=== PATIENT | male | born 1975 | race Caucasian/White ===

== ENCOUNTER 2023-09-03 13:45 | Emergency (ER) | payer OTHER, SELFPAY ==
[2023-09-03 13:49] VITALS: BP 162/113
--- NOTE | 2023-09-03 14:07 | ED.GENMED ---
History of Present Illness
General
Chief Complaint: Breathing Problem
Source: patient
Time Seen by Provider: 09/03/23 13:54
Travel History
Have you had any contact with someone who has COVID-19?: No
Do you have any symptoms of coronavirus? Fever > 100 degrees, chills, cough, shortness of breath, sore throat, loss of taste or smell, muscle aches, or headache?: Yes
Symptoms:: sob, chills
History of Present Illness
History of Present Illness:
This pt is a 48 yr old male, hx of HIV, levels undetectable, maintained on daily meds, presents with c/o 2 D hx of weakness, fatigue, body aches, cough, subj fever, chills, and sweats. He also notes mild sob, shin, and orthopnea, no pnd. He denies
anorexia/n/v/d/abd pain/neck stiffness/headache/photohpobia/new rash. He also notes gradual onset 2 d ago of post back pain upper, constant, wax and wane in intensity, worse with deep breathe. No recent trauma, immobilization, asx leg swelling, hx
of dvt. Pt is a smoker.
Past History
Past History
ED Past Medical History: Asthma, GERD, HTN and Other (Asthma, HIV, ITP)
ED Past Surgical History: Other (ln bx, ear tubes)
Patient has exhibited threatening behavior?: No
Social History
Tobacco: Smoker
Alcohol: None
Drug: None
Personal: Single
Living: with roommate
Employment: Employed
Family History
Family History: Other (Noncontributory)
Phy Exam
Physical Exam
Physical Exam:
GENERAL: Alert , in no apparent distress
EYE: pupils equal and reactive, no photophobia
NECK: Supple, no significant adenopathy.
ENT: o/p clr, mm sl dry
CARDIAC: Regular rate and rhythm, tachy .
LUNGS: equal breath sounds bilaterally, no acute respiratory distress, no wheezes/rales, occas rhonchi noted, occas cough
ABDOMEN: Soft, without focal tenderness, no r/g, no cvat
NEUROLOGICAL: Alert and oriented, no focal neuro deficits, no meningismus
SKIN: Warm and dry, skin intact.
MUSCULOSKELETAL: No edema, well perfused.
PSYCH: Normal and appropriate interaction.
Scores
Heart Failure Risk
Heart Failure Risk Score: Not Applicable
Course
Orders/Labs/Results
Orders:
Orders
09/03/23 13:52
Electrocardiogram (*1) Urgent
Reason for Study: Shortness of Breath
EKG- Treatment ONCE
09/03/23 14:06
CT Chest Pe Study Stat
Comment:
Reason For Exam: sob, hr 120, pleuritic back pain
Cardiac Monitoring- Treatment ONCE
0.9% Sodium Chloride 1000 ml [Nss] 1,000 ml IV BOLUS
Pulse Ox/cont/shift [RESP] Urgent
Quantity: 1
09/03/23 14:26
Complete Blood Count/With Diff Urgent
Comprehensive Metabolic Panel Urgent
Blood Culture Q30M
DIGNA Source: Blood/Venous
Specimen Description:
Blood Culture Q30M
DIGNA Source: Blood/Venous
Specimen Description:
Influenza A+B Rapid Molecular Stat
DIGNA Source: Nasal Swab
Specimen Description:
09/03/23 14:27
COVID-19 Antigen Urgent
Source: Nasal Swab
Lactic Acid Q4H
Comment: CANCEL 2nd LACTIC ACID IF 1st LACTIC ACID IS LESS THAN 2
09/03/23 16:29
Dexamethasone [Decadron] 40 mg PO NOW STA
09/03/23 18:15
Lactic Acid Q4H
Comment: CANCEL 2nd LACTIC ACID IF 1st LACTIC ACID IS LESS THAN 2
Abnormal Lab Results
09/03/23
14:26
MCV 77.8 L fL
(80.0-94.0)
MCH 26.1 L pg
(27.0-31.0)
Plt Count 7 L* 10^3/uL
(130-400)
Absolute Lymphs (auto) 0.8 L 10^3/uL
(1.2-3.4)
Lymphocytes % 16.6 L %
(20.5-51.1)
Monocytes % 11.6 H %
(1.7-9.3)
Sodium 129 L mmol/L
(135-145)
Chloride 96 L mmol/L
(98-107)
09/03/23 14:26
09/03/23 14:26
Vital Signs
Initial and Last Documented VS:
Initial Vital Signs
Temp Pulse Resp BP Pulse Ox
98.0 F 120 20 162/113 99
09/03/23 13:49 09/03/23 13:49 09/03/23 13:49 09/03/23 13:49 09/03/23 13:49
Last Documented Vital Signs
Temp Pulse Resp BP Pulse Ox
98.0 F 110 28 141/98 96
09/03/23 13:49 09/03/23 15:15 09/03/23 15:15 09/03/23 15:00 09/03/23 15:15
*Critical Care Note
Total Time (30-74mins, 75-104mins- exclusive of procedures): Not Applicable
Update Note
Update Note:
Patient presents to the Emergency Department with _bodyaches, subjective fever, fatigue, cough, dyspnea
Number and Complexity of Problems Addressed at the Encounter
� Chronic conditions affecting care:
� Acute Exacerbation and/or Progression of Chronic Illness:
� Differential Diagnosis includes: But not limited to COVID, influenza, nonspecific viral illness, PE, pneumonia, etc.
Amount and/or Complexity of Data to be Reviewed and Analyzed
� I performed an independent evaluation of and my interpretation is:
EKG: Read by me, sinus tachycardia, right bundle branch block, no acute ischemia
CT: Read by radiology, CT PE study negative
Xrays:
Laboratory Studies:platelet 7K
Other:
� Review of other/old records reveals: Patient in the hospital March 2021, discharge summary reviewed, admitted with an ITP flare
� Clinical information was obtained by an independent historian:
� Prescriptions/Medications Considered but not given:
� Further testing considered but not performed:
Risk of Complications and/or Morbidity or Mortality of Patient Management
� Social determinants of health affecting care:
� Discussion with other providers (PCP, Hospitalists, Consultants, etc):
� Escalation of care including admission/observation vs risk of discharge considered:Pt Wilmer Saxena ([birth year]) here with influenza, however noted to have platelets of 7K. He has a hx of ITP, no active bleeding at this time.
PMH includes HIV as well. (Admitted Mar 2021 with platelet of 5K, responded to tx and pulse dose decadron). Wondering if this low level, even without active bleed/bruise would necessitate tx, steroids, etc. Case d/w dr Salinas from
heme/onc...response I think he needs another course of pulse steroids. I would recommend dexamethasone 40 mg PO daily times 4 days and then stop.
Will rx decadron as recommended.
Of note, d/w pt r/b of tamiflu, and he decliesn at this time.
ED Attending Note
-
Portions of this chart may have been created with voice recognition software.� Occasional wrong word or��sound alike� substitutions may have occurred due to the inherent limitations of voice recognition software.
Discharge Plan
Departure
Patient Disposition: Home (Routine Discharge)
Date of Disposition: 09/03/23
Time of Disposition: 16:29
Patient with high blood pressure during this ER visit?: Yes
Condition: Good
Discharge Problem:
Thrombocytopenia, Influenza
Instructions: Immune thrombocytopenia (ITP), Flu, Adult ED, BLOOD PRESSURE
Prescriptions:
New
dexamethasone 20 mg tablet
40 mg PO DAILY Qty: 8 0RF
No Action
tamsulosin 0.4 mg Capsule
0.8 mg PO HS
Patient Comments:
09/03/2023, called pt.'s pharmacy ([facility]) and they state that this med. was last filled on 08/25/2022.
Complera 200-25-300 mg Tablet
1 tab PO HS
Patient Comments:
09/03/2023, called pt.'s pharmacy ([facility]) and they state that this med. was last filled in June of 2022.
Lopressor
1 tab PO BID
Patient Comments:
09/03/2023, pt.s pharmacy ([facility]) has no record of this med. dating back 2 years.
Referrals:
Sumit Ramirez MD [Family Provider] -
Ab Salinas MD [Active] - Follow up in 2-3 days
Activity Restrictions/Additional Instructions:
PLEASE SEE THE BLOOD DOCTOR (DR SALINAS) EARLY NEXT WEEK. YOU WILL NEED TO HAVE YOUR PLATELETS CHECKED NEXT WEEK. IF YOU DEVELOP BRUISING, BLEEDING, VOMITING, SEVERE HEADACHE, CHEST PAIN, TROUBLE BREATHING, GET WORSE, DO NOT GET BETTER, OR OTHER
WORRISOME SIGNS, GO TO THE ER IMMEDIATELY!
Interventions
Interventions:
ED- Cardiac Assessment Last Done: 09/03/23 16:08
ED- Pulmonary Assessment Last Done: 09/03/23 16:08
--- NOTE | 2023-09-03 14:21 | PHANOTE ---
09/03/2023, med rec tech, spoke to pt. to obtain their med. history; pt. has no recent pharmacy fill data or [facility] records; called pt.'s pharmacy ([facility] [address]) and they have no records of pt. filling Lopressor at their pharmacy;
additionally, pt. has not filled their Tamsulosin 0.4 mg since 08/25/2022 and their Complera since June of 2022. Attempted to call pt.'s roommate Andrew (phone: [phone]) but was unsuccessful. Could not confirm pt.'s meds.
[2023-09-03] MEDS: NSS 1000 IV (14:36)
[2023-09-03 14:37] VITALS: BP 137/103
[2023-09-03 14:49] LABS: % Basophils 0.8 % (0-2); % Immature Granulocytes 0.4 % (0-0.5); % Lymphocytes 16.6 % (20.5-51.1); % Monocytes 11.6 % (1.7-9.3); % Neutrophils 69.6 % (42.2-75.2); Absolute Eosinophils 0.1 10^3/uL (0-0.7); Absolute Lymphocytes 0.8 10^3/uL (1.2-3.4); Absolute Monocytes 0.6 10^3/uL (0.1-0.6); Absolute Neutrophils 3.3 10^3/uL (1.4-6.5); Hematocrit 43.9 % (39.0-52.0); Hemoglobin 14.7 g/dL (13.0-18.0); Mean Corp Hgb Conc. 33.5 g/dL (33.0-37.0); Mean Corpuscular Hgb 26.1 pg (27.0-31.0); Mean Corpuscular Volume 77.8 fL (80.0-94.0); Nucleated Red Blood Cells % 0 % (-); Red Blood Cell Count 5.64 10^6/uL (4.70-6.10); Red Cell Dist. Width 13.6 % (11.5-14.5); White Blood Cell Count 4.8 10^3/uL (4.8-10.8)
[2023-09-03 14:59] LABS: Lactic Acid 1.2 mmol/L (0.7-2.0)
[2023-09-03 15:00] VITALS: BP 141/98
[2023-09-03 15:00] LABS: ALT (SGPT) 29 U/L (0-50); AST (SGOT) 33 U/L (17-59); Albumin 3.9 g/dl (3.5-5.0); Alkaline Phosphatase 84 U/L (38-126); Blood Urea Nitrogen 10 mg/dl (9-20); Calcium 8.4 mg/dl (8.4-10.2); Carbon Dioxide 30 mmol/L (22-30); Chloride 96 mmol/L (98-107); Glucose 96 mg/dl (70-99); Potassium 4.3 mmol/L (3.5-5.1); Sodium 129 mmol/L (135-145); Total Bilirubin 0.4 mg/dl (0.2-1.3); Total Protein 7.1 g/dl (6.3-8.2); eGFR > 60.00
[2023-09-03 15:08] LABS: COVID-19 Antigen Negative (Negative)
[2023-09-03 15:33] LABS: Platelet Count 7 10^3/uL (130-400)
[2023-09-03] MEDS: DECADRON 40 MG PO (17:00)
== END 2023-09-03 17:20 | disposition home or self-care (01) ==
LOC: EMR 13:45
PROVIDERS: EMERGENCY PHYSICIAN Emergency Medicine; FAMILY PHYSICIAN Family Medicine
DX: J10.1 Influenza due to other identified influenza virus with other respiratory manifestations (principal); D69.6 Thrombocytopenia, unspecified; F17.200 Nicotine dependence, unspecified, uncomplicated; I10 Essential (primary) hypertension; Z11.52 Encounter for screening for COVID-19; Z21 Asymptomatic human immunodeficiency virus [HIV] infection status
CPT/HCPCS: 99285; 96360; 71275; 80053; 83605; 85025; 87040; 87502; 87811; 93005; Q9967

== ENCOUNTER 2023-10-30 02:44 | Inpatient (IN) | payer OTHER, SELFPAY ==
[2023-10-29 22:47] VITALS: BP 144/120
[2023-10-29] MEDS: DUONEB 3 ML INH (23:15)
[2023-10-29] MEDS: VENTOLIN NEBULES 7.5 MG INH (23:16)
[2023-10-29 23:24] VITALS: BP 139/102
[2023-10-29] MEDS: DECADRON 20 MG IV (23:37)
--- NOTE | 2023-10-29 23:42 | ED.GENMED ---
History of Present Illness
General
Chief Complaint: Breathing Problem
Source: patient and significant other
Exam Limitations: none
Time Seen by Provider: 10/29/23 22:57
Travel History
Have you had any contact with someone who has COVID-19?: No
Do you have any symptoms of coronavirus? Fever > 100 degrees, chills, cough, shortness of breath, sore throat, loss of taste or smell, muscle aches, or headache?: No
History of Present Illness
History of Present Illness:
This is a 48 year old male that comes in with c/o SOB. Significant other states that he went to make dinner. State that he had said that he thought he was getting sick. State that he called him when dinner was ready and he didn't answer him. States
that he went to find patient and he was laying in bed and he was turning purple. Patient states that he has had a cough since he was here with the flu 2 months ago. States that he has had chills, SOB, headache always and urinary burning. Denies any
fever. chest pain, abd pain, nausea, vomiting, diarrhea, dizziness.
Past History
Past History
ED Past Medical History: Asthma, GERD, HTN and Other ( HIV +, ITP, Headache, ADHD, Penile Fracture)
ED Past Surgical History: Other (ln bx, ear tubes)
Patient has exhibited threatening behavior?: No
Social History
Tobacco: Former smoker
Alcohol: None
Drug: None
Personal: Partner (Same sex partner)
Living: with roommate
Employment: Employed
Family History
Family History: Other (Noncontributory)
Review of Systems
Review of Systems
All Other Systems: ROS reviewed and negative except as documented in HPI and ROS
Constitutional: Reports chills; Denies fever
EENT: Reports no symptoms
Respiratory: Reports trouble breathing; Denies cough
Cardiac: Reports no symptoms; Denies chest pain
ABD/GI: Reports no symptoms; Denies abdominal pain, nausea, vomiting or diarrhea
: Reports no symptoms; Denies dysuria, frequency or urgency
Musculoskeletal: Reports no symptoms
Skin: Reports no symptoms
Neurological: Reports headache; Denies dizzy
Psychiatric: Reports no symptoms
Phy Exam
General Physical Exam
General Presentation: mild distress
General age: appears stated age
General Skin: warm and dry
General Habitus: normal
General Mental: alert
General Hydration: appears well hydrated
ENT Exam
ENT Exam: TM's normal, pharynx normal and neck supple
Eye Exam
Eye Exam: EOMI
Cardiovascular Exam
Cardiovascular Exam: no edema, no murmur, normal peripheral pulses and tachycardia
Pulmonary Exam
Pulmonary Exam: no rales, chest non tender, no rhonchi and generalized wheezing (Throughout exp)
Gastrointestinal Exam
Gastrointestinal Exam: normal bowel sounds, non tender, soft, no organomegaly, no pulsatile mass and non distended
Musculoskeletal Exam
Musculoskeletal Exam: full ROM and no edema
Skin Exam
Skin Exam: normal color, warm/dry, no rash and no petechia
Psychiatric Exam
Psychiatric Exam: normal mood/affect
Scores
Heart Failure Risk
Heart Failure Risk Score: Not Applicable
Course
Orders/Labs/Results
Orders:
Orders
10/29/23 23:10
Albuterol Sulfate [Ventolin Nebules] 7.5 mg INH R NOW STA
Ipratropium/Albuterol Sulfate [Duoneb] 3 ml INH R NOW STA
10/29/23 23:25
CR Chest Portable - 1 View Urgent
Comment:
Reason For Exam: SOB
Reason Study Needs to be Portable: Unable to Transport
10/29/23 23:27
Urinalysis Reflex To Culture Urgent
Dexamethasone Sod Phosphate [Decadron] 20 mg IV NOW STA
10/29/23 23:45
Complete Blood Count/With Diff Urgent
Comprehensive Metabolic Panel Urgent
Blood Culture Q30M
DIGNA Source: Blood/Venous
Specimen Description:
10/29/23 23:49
COVID-19 Antigen Urgent
Source: Nasal Swab
Lactic Acid Urgent
10/30/23 00:00
Blood Culture Q30M
DIGNA Source: Blood/Venous
Specimen Description:
Abnormal Lab Results
10/29/23
23:45
MCV 77.2 L fL
(80.0-94.0)
MCH 26.1 L pg
(27.0-31.0)
RDW 14.6 H %
(11.5-14.5)
Absolute Lymphs (auto) 1.0 L 10^3/uL
(1.2-3.4)
Lymphocytes % 12.7 L %
(20.5-51.1)
Glucose 108 H mg/dl
(70-99)
10/29/23 23:45
10/29/23 23:45
Anemia, glucose nonfasting. Lactic acid normal 1.8, COVID negative.
Vital Signs
Initial and Last Documented VS:
Initial Vital Signs
Temp Pulse Resp BP Pulse Ox
98.1 F 118 22 144/120 97
10/29/23 22:47 10/29/23 22:47 10/29/23 22:47 10/29/23 22:47 10/29/23 22:47
Last Documented Vital Signs
Temp Pulse Resp BP Pulse Ox
98.1 F 118 22 144/120 97
10/29/23 22:47 10/29/23 22:47 10/29/23 22:47 10/29/23 22:47 10/29/23 23:04
MDM/Problems Addressed
Differential Diagnosis Includes:
Asthma exacerbation, COVID,
MDM/Problems Addressed:
This is a 48 year old male that comes in with c/o SOB. States that this started tonight and he wasn't feeling good. Stats that he became SOB.
Will get labs, Chest X-ray , IV steroids and hour long neb.
Back into see patient. States that he feels better but his chest is still tight. Patient continues with Exp wheezing. Will admit patient with asthma exacerbation. Hospitalist notified.
Chronic conditions affecting care: Asthma
Acute Exacerbation and/or Progression of Chronic Illness: Asthma
*Radiology
Radiology exam reviewed: preliminary read by ED provider (Chest- Negative for active disease)
*Pulse Oximetry
Patient hypoxic: no
*EKG
Interpreted by ED Provider?: NA
Rate: EKG- N/A
*Carton Stapler Interpretation
Rate: tachycardiac
Heart Rate: 112
Rhythm: sinus tachycardia
*Critical Care Note
Total Time (30-74mins, 75-104mins- exclusive of procedures): Not Applicable
ED Attending Note
-
Portions of this chart may have been created with voice recognition software.� Occasional wrong word or��sound alike� substitutions may have occurred due to the inherent limitations of voice recognition software.
Discharge Plan
Departure
Patient Disposition: Admit
Date of Disposition: 10/30/23
Time of Disposition: 00:41
Admit to: Med/Surg
Presentation/result/management discussed w/ accepting MD/DO: Hospitalist
Patient with high blood pressure during this ER visit?: Yes
Condition: Good
Covid-19: Negative COVID-19
Discharge Problem:
Asthma exacerbation
Prescriptions:
No Action
tamsulosin 0.4 mg Capsule
0.8 mg PO HS
Patient Comments:
09/03/2023, called pt.'s pharmacy ([facility] [address]) and they state that this med. was last filled on 08/25/2022.
Complera 200-25-300 mg Tablet
1 tab PO HS
Patient Comments:
09/03/2023, called pt.'s pharmacy ([facility] [address]) and they state that this med. was last filled in June of 2022.
Lopressor
1 tab PO BID
Patient Comments:
09/03/2023, pt.s pharmacy ([facility] [address]) has no record of this med. dating back 2 years.
dexamethasone 20 mg tablet
40 mg PO DAILY Qty: 8 0RF
Referrals:
Sumit Ramirez MD [Family Provider] -
Interventions
Interventions:
*Risk Screen - Suicide Last Done: 10/29/23 22:47
*General Assessment Last Done: 10/29/23 23:04
*Neglect/Abuse Screening Last Done: 10/29/23 22:47
ED- Fall Risk Assessment Last Done: 10/29/23 23:04
*ED COVID-19 Vaccine History Last Done: 10/29/23 23:04
ED- Cardiac Assessment Last Done: 10/29/23 23:04
ED- Pulmonary Assessment Last Done: 10/29/23 23:04
Discharge Date and Time
Print Language: DOMINICAN
[2023-10-30] VITALS: BP 140/91
[2023-10-30 00:07] LABS: % Basophils 0.7 % (0-2); % Eosinophils 4.3 % (0-6); % Immature Granulocytes 0.5 % (0-0.5); % Lymphocytes 12.7 % (20.5-51.1); % Monocytes 7.8 % (1.7-9.3); Absolute Basophils 0.1 10^3/uL (0-0.2); Absolute Eosinophils 0.4 10^3/uL (0-0.7); Absolute Monocytes 0.6 10^3/uL (0.1-0.6); Hematocrit 46.1 % (39.0-52.0); Hemoglobin 15.6 g/dL (13.0-18.0); Mean Corp Hgb Conc. 33.8 g/dL (33.0-37.0); Mean Corpuscular Hgb 26.1 pg (27.0-31.0); Mean Corpuscular Volume 77.2 fL (80.0-94.0); Nucleated Red Blood Cells % 0 % (-); Red Blood Cell Count 5.97 10^6/uL (4.70-6.10); Red Cell Dist. Width 14.6 % (11.5-14.5); White Blood Cell Count 8.2 10^3/uL (4.8-10.8)
[2023-10-30 00:17] LABS: Lactic Acid 1.8 mmol/L (0.7-2.0)
[2023-10-30 00:19] LABS: ALT (SGPT) 21 U/L (0-50); AST (SGOT) 26 U/L (17-59); Albumin 4.6 g/dl (3.5-5.0); Alkaline Phosphatase 84 U/L (38-126); Blood Urea Nitrogen 13 mg/dl (9-20); Calcium 9.8 mg/dl (8.4-10.2); Carbon Dioxide 28 mmol/L (22-30); Chloride 98 mmol/L (98-107); Glucose 108 mg/dl (70-99); Sodium 137 mmol/L (135-145); Total Bilirubin 0.5 mg/dl (0.2-1.3); Total Protein 7.8 g/dl (6.3-8.2); eGFR > 60.00
[2023-10-30 00:20] LABS: COVID-19 Antigen Negative (Negative)
[2023-10-30 00:39] LABS: Mean Platelet Volume 8.9 fL (7.4-10.4); Platelet Count 39 10^3/uL (130-400)
[2023-10-30] MEDS: NSS 1000 IV (00:57)
[2023-10-30 01:00] VITALS: BP 131/90
--- NOTE | 2023-10-30 01:48 | HPS.HSE ---
Family Physician
-
Family Physician: Sumit Ramirez
Chief Complaint
-
worsening SoB
History of Present Illness
48M HX asthma, former smoker , HX immuno-reconstituted HIV on Complera , compliance with ART , last CD4 was pw SoB:
SoB
Worsening SoB and felt tird need tolie on the bed
Subacute cough with SoB since flu 2 months ago
partnet found him puple ? cynaosis
ROS
Denies any fever. chest pain, abd pain, nausea, vomiting, diarrhea, dizziness.
At ER:
Fever with T 100.1 , Tachycardic 120s BP 140/90 RR15 POx 96
Medical History
Past Medical History
Past Medical History: Reports Other
Additional Past Medical History:
Asthma, GERD, HTN and Other ( HIV +, ITP, Headache, ADHD, Penile Fracture)
Past Surgical History: Reports Other (ear tubes )
Social History
Tobacco: Former Smoker
Alcohol: None
Drug: None
Personal: Partner (same sex partner )
Employment: Employed
Family History
Family History: Not pertinent
Allergies / Home Medications
Allergies reflects when Allergies were last updated in [employer]
Home Medications with original date entered in [employer]
Allergy/Medication List:
Allergies
Allergy/AdvReac Type Severity Reaction Status Date / Time
bee venom protein (honey bee) Allergy Severe Anaphylaxis Verified 10/29/23 22:50
varenicline [From Chantix] Allergy Severe Rash Verified 10/29/23 22:50
Home Medications
Lopressor 1 tab PO BID 09/03/23
emtricitabine 200 mg-rilpivirine 25 mg-tenofovir disprox 300 mg tablet (Complera) 1 tab PO HS 09/03/23
tamsulosin 0.4 mg capsule 0.8 mg PO HS 09/03/23
albuterol 90 mcg/actuation aerosol inhaler 2 mcg inhalation Q4 PRN wheezing 04/14/24
Review of Systems
-
Constitutional: Reports No Symptoms
EENT: Reports No Symptoms
Respiratory: Reports See HPI
Cardiac: Reports No Symptoms
Abdomen/GI: Reports No Symptoms
: Reports No Symptoms
Musculoskeletal: Reports No Symptoms
Skin: Reports No Symptoms
Neurological: Reports No Symptoms
Endocrine: Reports No Symptoms
Hematologic/Lymphatic: Reports No Symptoms
Psych: Reports No Symptoms
Physical Exam
Vital Signs
Vital Signs
Temp Pulse Resp BP Pulse Ox
100.1 F 126 15 140/91 96
10/30/23 00:45 10/30/23 00:30 10/30/23 00:30 10/30/23 00:00 10/30/23 00:30
Physical Exam
General: Comfortable, Conversant and Appears in Distress (mild )
HEENT: NormoCephalic, Anicteric and Moist mucous membranes
Respiratory: Wheezes (b/l diffuse )
Cardiac: S1/S2, Regular Rhythm and Tachycardia
Breast: Deferred by me
GI: Soft, Non Tender, Non Distended and Normal Bowel Sounds
Rectal: Deferred by Provider
Genito-urinary: Deferred by me
Musculoskeletal: No Cyanosis
Neuro: AO x 3 and Nonfocal/grossly intact
Psych: Calm
Laboratory Results
-
10/29/23 23:45
10/29/23 23:45
Laboratory Results
Lactic Acid 1.8 mmol/L (0.7-2.0) 10/29/23 23:49
Total Bilirubin 0.5 mg/dl (0.2-1.3) 10/29/23 23:45
AST 26 U/L (17-59) 10/29/23 23:45
ALT 21 U/L (0-50) 10/29/23 23:45
Alkaline Phosphatase 84 U/L (38-126) 10/29/23 23:45
Data Reviewed
-
Diagnostic Radiology: Image Personally Visualized and interpreted
Medical Tests (Nuc Med, Echo, EKG etc): Report Reviewed by me
Lab Data: Labs Reviewed by me
Old Records: Reviewed
Impression/Plan
-
Reviewed VS: T 100.1 ST 120s BP 140/90 RR15 POx 96
Data
WCC 8.2
Lymphocytes 12.7 % ( range 20-51 % )
Hgb 15s
MCV 77
Unremarkable CMP
NEG Covid
BCx sent
My view on CXR: no obvious PNA
Last hospitalist admission: 04/09/21 - 04/10/21
DXS;
1. Idiopathic thrombocytopenic purpura flare.
2. Human immunodeficiency virus.
3. Asthma.
4. Tobacco dependence.
ASSESSMENT & PLAN
AE Asthma / Bronchitis
Former smoker
NEG CXR for PNA by my view
- IV Decadron
- Duu Neb qid
- Hold off ABx
- Pul consult
HX immuno- reconstituted HIV on Complera
Reports compliance with ART
last CD4 could not recall
Primary ID - Dr Chapman at [facility]
-cont Complera
- check CD4 count
Essential HTN on metoprolol
HX GERD
DVT Px: LMWH
Full code
IP MS
[2023-10-30 02:23] LABS: Urine Albumin Negative (Neg - Trace); Urine Bilirubin Negative (Negative); Urine Character Clear (Clear); Urine Color Yellow; Urine Glucose Negative (Negative); Urine Ketone Negative (Negative); Urine Leukocyte Negative (Negative); Urine Nitrite Negative (Negative); Urine Occult Blood Negative (Negative); Urine Specific Gravity 1.005 (<1.030); Urine Urobilinogen Negative (Neg - 1+)
[2023-10-30 03:59] VITALS: BP 124/80; BMI 20.8
--- NOTE | 2023-10-30 04:18 | PTCARENOTE ---
Patient received in bed from ED @ 0400. Patient is AAOx3, denies shortness of breath, no complaints at this time. Patient oriented to room and call mccormick.
[2023-10-30 06:55] LABS: % Basophils 0.2 % (0-2); % Immature Granulocytes 0.5 % (0-0.5); % Lymphocytes 9.5 % (20.5-51.1); % Monocytes 1.1 % (1.7-9.3); % Neutrophils 88.7 % (42.2-75.2); Absolute Lymphocytes 0.6 10^3/uL (1.2-3.4); Absolute Monocytes 0.1 10^3/uL (0.1-0.6); Absolute Neutrophils 5.4 10^3/uL (1.4-6.5); Hematocrit 47.7 % (39.0-52.0); Hemoglobin 15.4 g/dL (13.0-18.0); Mean Corp Hgb Conc. 32.3 g/dL (33.0-37.0); Mean Corpuscular Hgb 25.5 pg (27.0-31.0); Mean Corpuscular Volume 78.8 fL (80.0-94.0); Mean Platelet Volume 9.7 fL (7.4-10.4); Nucleated Red Blood Cells % 0 % (-); Platelet Count 38 10^3/uL (130-400); Red Blood Cell Count 6.05 10^6/uL (4.70-6.10); Red Cell Dist. Width 14.9 % (11.5-14.5); White Blood Cell Count 6.1 10^3/uL (4.8-10.8)
[2023-10-30 07:09] VITALS: BP 116/79
[2023-10-30 07:19] LABS: Blood Urea Nitrogen 11 mg/dl (9-20); Calcium 9.6 mg/dl (8.4-10.2); Carbon Dioxide 24 mmol/L (22-30); Chloride 103 mmol/L (98-107); Estimated Creatinine Clearance 110 ml/min; Glucose 152 mg/dl (70-99); Potassium 4.6 mmol/L (3.5-5.1); Sodium 136 mmol/L (135-145); eGFR > 60.00
[2023-10-30] MEDS: DUONEB 3 ML INH ×2 (07:48→11:33)
[2023-10-30] MEDS: DECADRON 4 MG IV (07:57)
--- NOTE | 2023-10-30 13:46 | CON.PUL ---
Consultation
Consultation Request
Date/Time Consultation Requested: 10/29
Date/Time Consultation Performed: 10/29
Reason for Consultation: Pulmonary, asthma
Medical History
-
History of Present Illness:
History obtained from the patient and reviewing medical records. Patient is a 48-year-old male with history of asthma, HIV, thrombocytopenia with extensive hematology workup in the past intermittently treated with steroids, whose history dates back
to 1 month ago when he developed the flu. Since then he has been having a persistent cough. He takes albuterol occasionally, but recently has noticed increased use of albuterol, increased wheezing, chest congestion, shortness of breath and
tightness of chest. He brought himself into [facility] where upon arrival, afebrile, pulse 118, breathing at 22, blood pressure 140/120, 97%. He was found to have diffuse wheezing, treated with steroids. We are asked to help from a
pulmonary standpoint.
At baseline, he denies any respiratory issues. His HIV medications are managed by his primary physician. He does not see an infectious disease doctor. He states he has had multiple hematology evaluations in the past and was recommended to get a
splenectomy for his thrombocytopenia
.
PMH: History of asthma, hypertension, GERD, history of HIV, ITP, ADHD
Past Medical History
Past Medical History: None (See above)
Past Surgical History: None (See above)
Social History
Tobacco: Former Smoker ([id number], quit April 2023)
Alcohol: Occasional
Drug: None
Living: Alone (Has a roommate, same-sex partner)
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
Family History
Family History: Other (7 sisters healthy. Mother and father .)
Allergies / Home Medications
Allergies
Allergy/AdvReac Type Severity Reaction Status Date / Time
bee venom protein (honey bee) Allergy Severe Anaphylaxis Verified 10/29/23 22:50
varenicline [From Chantix] Allergy Severe Rash Verified 10/29/23 22:50
Home Medications
�Medication �Instructions �Recorded �Confirmed �Last Taken �Type
Lopressor 1 tab PO BID 09/03/23 10/30/23 2 Days Ago History
~09/01/23
emtricitabine 200 mg-rilpivirine 1 tab PO HS 09/03/23 10/30/23 09/01/23 History
25 mg-tenofovir disprox 300 mg
tablet (Complera)
tamsulosin 0.4 mg capsule 0.8 mg PO HS 09/03/23 10/30/23 09/02/23 History
albuterol 90 mcg/actuation aerosol 2 mcg inhalation Q4 PRN wheezing 10/30/23 10/30/23 Unknown History
inhaler
Review of Systems
-
All other systems: Negative unless noted (Poor dentition, patient losing his teeth)
Vitals / Labs / Diagnostic Testing
Vital Signs
Temp Pulse Resp BP Pulse Ox
97.5 F 90 16 116/79 98
10/30/23 07:09 10/30/23 11:35 10/30/23 11:35 10/30/23 07:09 10/30/23 11:35
Lab Data
10/30/23 06:32
10/30/23 06:32
Microbiology
10/30/23 02:05 Nasal Swab Influenza Types A & B (HERB) - Final
Negative for Influenza A & B, NAAT
Negative results must be combined with clinical observations
and patient history.
Nucleic Acid Amplification test (NAAT)performed on the
[employer] platform.
Diagnostic Testing:
Physical Exam
-
HEENT: Normocephalic, Anicteric and Other (Poor dentition, missing many teeth)
Cardiovascular: S1/S2, Regular Rhythm, Murmur (n) and Rub (n)
Respiratory: Wheeze (Diffuse wheezing), Rales (n), Rhonchi (n), Non-Labored Respirations and Other (Few scattered inspiratory squeaks)
GI: Soft and Non Tender
Neurology: Awake, Alert and No Motor Deficits (Able to sit up without assistance)
Skin: Good Color (No rash, no clubbing)
General: Comfortable (Conversant)
Assessment
-
48-year-old male with history of asthma, [id number] history of smoking, history of HIV, chronic thrombocytopenia, presents with asthma exacerbation. Of note, patient had flu 1 month ago
Acute asthma exacerbation
Tachycardia
Incomplete right bundle branch block
Recent upper respiratory infection/flu, 1 month ago
Low-grade fever
Hyperglycemia
Conditions present prior to admission
Scattered pulm nodules, per CT chest August 2023 (my review)
Bronchial wall thickening
Chronic thrombocytopenia/ITP
Treated intermittently with steroids
[id number] history of smoking, quit April 2023
Plan/recommendations
At this time, patient states he is about 60% improved since admission.
He apparently had an ER visit back in August 2023 for similar symptom complex, CT chest at that time negative for PE.
Although report states it is negative for parenchymal abnormality, he does have scattered groundglass nodules in the right upper lobe per my review
Diffuse wheezing on exam, poor dentition
Significant tachycardia noted at time of admission, seems to be improved
Incomplete right bundle branch block noted, chronic per EKG in the past
Moving forward
Patient not on any maintenance inhaler therapy
Diffuse wheezing and squeaks noted although he states he is improved
He would potentially benefit from maintenance inhaler therapy, but would not start until outpatient pulmonary follow-up, spirometry/PFT obtained
Continue with IV steroids for now
Nebulized therapy with DuoNebs as needed, and 4 times a day
Patient not very forthcoming with regards to HIV treatment. States his primary physician manages, denies any significant changes recently
Although reconstitution syndrome is a possibility, chronicity of therapy is unclear
CD4 count pending
Chronic thrombocytopenia noted. Patient has been treated with steroids intermittently by his primary
Cannot recall whether this helps his pulmonary symptoms
Patient also adamant about leaving for home today. Not sure what his baseline is, but not comfortable with him leaving given current wheezing and squeaks
If he is discharged, he will need follow-up with pulmonary and his primary physician within a week
Reviewed with patient at length. All questions answered
We will follow
--- NOTE | 2023-10-30 16:54 | CM ---
Addendum entered by Elena Almonte RN 10/30/23 17:02:
Notified by Legislative Analyst Anusha that patient left AMA.
Original Note:
Patient with Dx Acute asthma exacerbation. Room air.
Met with patient who resides with his SO Arlene and their dog in a 3rd floor apartment with 2 flights stairs.
The patient has been independent in ADLs and ambulation.
He has no DME or prior VN.
PCP - Sumit Ramirez
Pharmacy - [facility] [address]
No CM d/c needs identified.
Plan home.
--- NOTE | 2023-10-31 07:52 | W.PN.UPDATE ---
Update Note
Progress Note Update
Patient admitted by Dr. Sommer in early hours of yesterday morning and the case got assigned to me. I didnt see patient as he was just admitted and had a plan.
Pt is also seen by Pulmonary same day.
He is known to have HIV and was admitted for asthma exacerbation. At the time of pulmonary eval he was felt not stable for discharge home but he was adamant of leaving and he signed AMA before my review.If he is leaving AMA He was advised by
pulmonary during the consultation to follow-up with his PCP within a week.
--- NOTE | 2023-10-31 07:57 | W.DCSUMMARY ---
Discharge Summary
Discharge Data
Date of Admission: 10/30/23
Date of Discharge: 10/30/23
-
Pending Results: No
Hospital Course
Primary diagnosis:
Asthma exacerbation
Secondary diagnosis:
Human immunodeficiency virus infection
Hospital course:
This is an AMA discharge before I had an opportunity to review the patient. Information below is from the chart.
Patient with a history of HIV on treatments had a flu a month ago but persisted to have cough. He was using increasing albuterol. He was having chest congestion and shortness of breath. He was hemodynamically stable but tachycardic and
extensively wheezy. He was diagnosed to have asthma exacerbation. Will put on steroids.
Just as he started feeling bit better he wanted to go home despite pulmonary advising against it. He signed AMA document on the left.
Consultants on board:
Pulmonary Dr Das
Discharge Plan
-
Patient Disposition: Against Medical Advice
Condition: Fair
Referrals:
Amador Das MD [Active] -
(SENIOR [facility]MIST visit in 1 week ([place])
[facility] in 3 mo with full PFT)
Sumit Ramirez MD [Family Provider] -
Prescriptions:
No Action
tamsulosin 0.4 mg Capsule
0.8 mg PO HS
Patient Comments:
09/03/2023, called pt.'s pharmacy ([facility]) and they state that this med. was last filled on 08/25/2022.
Complera 200-25-300 mg Tablet
1 tab PO HS
Patient Comments:
09/03/2023, called pt.'s pharmacy ([facility]) and they state that this med. was last filled in June of 2022.
Lopressor
1 tab PO BID
Patient Comments:
09/03/2023, pt.s pharmacy ([facility]) has no record of this med. dating back 2 years.
albuterol 90 mcg/actuation Aerosol
2 mcg INHALATION Q4 PRN (Reason: wheezing)
Discharge Date and Time
Discharge Date/Time: 10/30/23 15:54
Print Language: [place]LAND[place]
[2023-10-31 18:27] LABS: CD4 % of Cells Analyzed 12 % (32-64); CD4 Absolute Count 73 cells/uL (430-1800)
== END 2023-10-30 15:54 | disposition left against medical advice (07) | DRG 202 ==
LOC: 4 WEST ACU 02:44
PROVIDERS: Clinical Nurse Specialist Family Health; ADMITTING PHYSICIAN Internal Medicine; ATTENDING PHYSICIAN Internal Medicine; CONSULT PHYSICIAN Internal Medicine Critical Care Medicine; EMERGENCY PHYSICIAN Student in an Organized Health Care Education/Training Program; FAMILY PHYSICIAN Family Medicine
DX: J45.901 Unspecified asthma with (acute) exacerbation (principal); D69.3 Immune thrombocytopenic purpura; F90.9 Attention-deficit hyperactivity disorder, unspecified type; I10 Essential (primary) hypertension; I45.10 Unspecified right bundle-branch block; D64.9 Anemia, unspecified; R73.9 Hyperglycemia, unspecified; K21.9 Gastro-esophageal reflux disease without esophagitis; Z21 Asymptomatic human immunodeficiency virus [HIV] infection status; Z87.891 Personal history of nicotine dependence; Z88.8 Allergy status to other drugs, medicaments and biological substances; Z91.030 Bee allergy status; Z11.52 Encounter for screening for COVID-19
CPT/HCPCS: 71045; 80048; 80053; 81003; 83605; 85025; 86361; 87040; 87502; 87811; 94640; 94644; 96361; 96374; 99285

== ENCOUNTER 2024-02-11 16:54 | Inpatient (IN) | payer OTHER, SELFPAY ==
[2024-02-11 12:13] VITALS: BP 152/89
[2024-02-11 13:05] VITALS: BP 143/100; BMI 21.3
[2024-02-11 13:06] LABS: % Basophils 0.6 % (0-2); % Eosinophils 4.2 % (0-6); % Immature Granulocytes 0.3 % (0-0.5); % Monocytes 5.9 % (1.7-9.3); Absolute Eosinophils 0.3 10^3/uL (0-0.7); Absolute Lymphocytes 0.8 10^3/uL (1.2-3.4); Absolute Monocytes 0.4 10^3/uL (0.1-0.6); Absolute Neutrophils 4.8 10^3/uL (1.4-6.5); Hematocrit 42.9 % (39.0-52.0); Hemoglobin 14.6 g/dL (13.0-18.0); Mean Corpuscular Volume 76.5 fL (80.0-94.0); Nucleated Red Blood Cells % 0 % (-); Red Blood Cell Count 5.61 10^6/uL (4.70-6.10); Red Cell Dist. Width 15.2 % (11.5-14.5); White Blood Cell Count 6.3 10^3/uL (4.8-10.8)
[2024-02-11 13:15] LABS: ALT (SGPT) 27 U/L (0-50); AST (SGOT) 31 U/L (17-59); Albumin 4.1 g/dl (3.5-5.0); Alkaline Phosphatase 92 U/L (38-126); Blood Urea Nitrogen 10 mg/dl (9-20); Calcium 8.8 mg/dl (8.4-10.2); Carbon Dioxide 28 mmol/L (22-30); Chloride 104 mmol/L (98-107); Estimated Creatinine Clearance 113 ml/min; Glucose 124 mg/dl (70-99); Potassium 3.9 mmol/L (3.5-5.1); Sodium 138 mmol/L (135-145); Total Bilirubin 0.3 mg/dl (0.2-1.3); Total Protein 6.9 g/dl (6.3-8.2); eGFR > 60.00
[2024-02-11 13:38] LABS: Platelet Count 19 10^3/uL (130-400)
--- NOTE | 2024-02-11 13:41 | EDRN ---
Dr Galvan notified of critical value platelet
[2024-02-11 14:00] VITALS: BP 138/84
--- NOTE | 2024-02-11 14:15 | PHANOTE ---
med [facility](02/11/24)-patient states he takes metoprolol, complera, and flomax, but there are no pharmacy fill records for more than a year. When pressed on this, patient states 'must've gotten them from somewhere else, I don't know'. Patient did
state he took the medications yesterday.
--- NOTE | 2024-02-11 15:09 | ED.GENMED ---
History of Present Illness
General
Chief Complaint: Skin Problem
Source: patient
Exam Limitations: none
Time Seen by Provider: 02/11/24 13:09
Nursing documentation reviewed up to this point in time: agreed with
History of Present Illness
History of Present Illness:
48-year-old male with a past medical history of asthma, hypertension, HIV (on HAART, unsure of viral load/CD4), ITP who presents to the emergency department for evaluation of right leg pain, redness, swelling. Patient reports that he has had issues
with infections/cellulitis on the feet in the past. He says that over the past 24 hours he has developed redness, pain and swelling mainly in the foot but pain started to progress up the leg. Came to the emergency room for evaluation. Denies
fevers or chills. Denies chest pain or shortness of breath. He denies any other complaints. He denies any trauma or injury.
Past History
Past History
ED Past Medical History: Asthma, GERD, HTN and Other ( HIV +, ITP, Headache, ADHD, Penile Fracture)
ED Past Surgical History: Other (ln bx, ear tubes)
Patient has exhibited threatening behavior?: No
Social History
Tobacco: Former smoker
Alcohol: None
Drug: None
Personal: Partner (Same sex partner)
Living: with roommate
Employment: Employed
Family History
Family History: Other (Noncontributory)
Review of Systems
Review of Systems
All Other Systems: ROS reviewed and negative except as documented in HPI and ROS
Constitutional: Denies fever or chills
Respiratory: Denies trouble breathing
Cardiac: Denies chest pain
ABD/GI: Denies abdominal pain
: Denies flank pain
Musculoskeletal: Reports muscle pain and edema; Denies neck pain or back pain
Skin: Reports rash
Neurological: Denies dizzy or headache
Phy Exam
Physical Exam
Physical Exam:
General: Awake, alert, oriented x3; no acute distress
Head: Normocephalic, atraumatic
Eyes: Conjunctiva normal
Throat: Airway intact, handling secretions
Neck: Trachea midline, supple without meningismus
Lungs: Clear to auscultation bilaterally, no wheezing, rales, rhonchi
Heart: Regular rate and rhythm, no murmurs, gallops, or rubs
Abd: Soft, non distended, nontender
Neuro: Cranial nerves grossly intact, speech fluid
Skin: Patient has erythema dorsum of the right foot and some warmth and tenderness; says some streaking erythema up the medial calf extending towards the knee
Extremities: Very slight edema of the right foot, good strong right DP and PT pulse, skin findings as above
Scores
Heart Failure Risk
Heart Failure Risk Score: Not Applicable
Heart Score for Chest Pain Patients
STEMI patient?: Not applicable
Withdrawal Assessment of Alcohol
Withdrawal Assessment Completed?: Not applicable
Course
Orders/Labs/Results
Orders:
Orders
02/11/24 12:30
Complete Blood Count/With Diff Urgent
Comprehensive Metabolic Panel Urgent
02/11/24 13:53
US Periph Venous LOWER Ext RT Urgent
Comment:
Reason For Exam: RLE pain, redness, swelling
02/11/24 15:15
CeFAZolin 2 grams IV Push NOW CeFAZolin 2 GRAM [Ancef] 2 grams in 10 ml IV NOW
Abnormal Lab Results
02/11/24
12:30
MCV 76.5 L fL
(80.0-94.0)
MCH 26.0 L pg
(27.0-31.0)
RDW 15.2 H %
(11.5-14.5)
Plt Count 19 L* 10^3/uL
(130-400)
Absolute Lymphs (auto) 0.8 L 10^3/uL
(1.2-3.4)
Neutrophils % 77.0 H %
(42.2-75.2)
Lymphocytes % 12.0 L %
(20.5-51.1)
Glucose 124 H mg/dl
(70-99)
02/11/24 12:30
02/11/24 12:30
Vital Signs
Initial and Last Documented VS:
Initial Vital Signs
Temp Pulse Resp BP Pulse Ox
36.8 C 114 20 152/89 97
02/11/24 12:13 02/11/24 12:13 02/11/24 12:13 02/11/24 12:13 02/11/24 12:13
Last Documented Vital Signs
Temp Pulse Resp BP Pulse Ox
36.8 C 101 16 138/84 100
02/11/24 12:13 02/11/24 14:00 02/11/24 14:00 02/11/24 14:00 02/11/24 13:05
MDM/Problems Addressed
Differential Diagnosis Includes:
DVT, cellulitis
MDM/Problems Addressed:
48-year-old male with history as above notable for HIV presents for evaluation of right lower extremity pain and swelling, redness. Tachycardic and mildly hypertensive on arrival although blood pressure normalized by my assessment. Physical exam
as above. Will check lower extremity ultrasound to rule out DVT. Will check CBC and CMP. Will reassess after the above.
Labs reviewed: CBC shows thrombocytopenia to 19 which is a chronic issue in the setting of ITP. CMP no clinically significant abnormalities. Right lower extremity ultrasound was negative for DVT but does show prominent inguinal lymph node likely
related to cellulitis. Plan to treat with IV antibiotic�given immunocompromise with HIV positive patient (review of medical record shows last CD4 count here was 73) and rapid progression of symptoms I think he warrants admission for monitoring.
Case discussed with hospitalist.
Chronic conditions affecting care:
HIV�immune compromised
*Radiology
Radiology exam reviewed: radiology read reviewed
*Pulse Oximetry
Patient hypoxic: no
*Critical Care Note
Total Time (30-74mins, 75-104mins- exclusive of procedures): Not Applicable
Data Reviewed
Source: patient and records
Patient Management
Discussion with other providers: Hospitalist (Discussed with hospitalist)
Escalation/DeEscalation of care consider admission/obs:
Admission indicated
ED Attending Note
-
Portions of this chart may have been created with voice recognition software.� Occasional wrong word or��sound alike� substitutions may have occurred due to the inherent limitations of voice recognition software.
Discharge Plan
Departure
Patient Disposition: Admit
Date of Disposition: 02/11/24
Time of Disposition: 15:16
Admit to doctor: Andrew
Presentation/result/management discussed w/ accepting MD/DO: Hospitalist
Discharge Problem:
Cellulitis, Thrombocytopenia
Prescriptions:
No Action
tamsulosin 0.4 mg Capsule
0.4 mg PO HS
Patient Comments:
02/11/24: Despite no pharmacy records, patient states he takes this medication. No alternative pharmacy given by patient.
Complera 200-25-300 mg Tablet
1 tab PO HS
Patient Comments:
02/11/24: Despite no pharmacy records, patient states he takes this medication. No alternative pharmacy given by patient.
Lopressor
1 tab PO BID
Patient Comments:
02/11/24: Despite no pharmacy records, patient states he takes an unknown dosage. No alternative pharmacy given by patient.
albuterol sulfate 90 mcg/actuation Hfa Aerosol Inhaler
2 puff INHALATION R Q6HPRN PRN (Reason: sob)
Referrals:
Sumit Ramirez MD [Family Provider] -
Interventions
Interventions:
*Risk Screen - Suicide Last Done: 02/11/24 12:13
*General Assessment Last Done: 02/11/24 12:13
*Neglect/Abuse Screening Last Done: 02/11/24 12:13
ED- Fall Risk Assessment Last Done: 02/11/24 13:08
ED-Skin Assessment Last Done: 02/11/24 13:07
Discharge Date and Time
Print Language: SLOVENIAN
--- NOTE | 2024-02-11 15:29 | HPS.HSE ---
Family Physician
-
Family Physician: Sumit Ramirez
Chief Complaint
-
Right foot blister with redness and erythema
History of Present Illness
48-year-old male complaining of right foot third toe blister with redness and swelling. He reports the area has become worse over the past 24 hours. He denies any trauma or injury to this leg. He does state he has history of past cellulitis in
this leg. He denies fever, chills, chest pain, palpitations, shortness breath, cough, abdominal pain, nausea, vomiting, diarrhea, urinary symptoms. He is on HAART for HIV/AIDS reported history CD4 count was 74 from October labs. Patient is unaware
of low CD4 counts he also tells me that he occasionally forgets to take his HIV medication. He has had history of platelets of 7 in October requiring Decadron 40 mg at that time. He has Past medical history HIV/AIDS recent CD4 count 74, ITP since
mid 30s, ADHD, BPH, HTN, frequent headaches COVID infection May 2021, asthma, active smoker
Medical History
Past Medical History
Past Medical History: Reports Other
Additional Past Medical History:
Asthma
Former smoker 34-year 1 pack a day quit 6 months ago
GERD
HTN
HIV/AIDS recent CD4 count 74
ITP Dx age 30s
Frequent headaches
ADHD
Penile Fracture
COVID infection May 2021
Past Surgical History: Reports Other
Additional Past Surgical History:
Myringotomy tubes
Penile fracture repair
Lymph node removal
Social History
Tobacco: Former Smoker (Former smoker 34-year 1 pack a day quit 6 months ago)
Alcohol: None
Drug: None
Personal: Partner (same sex partner )
Employment: Employed
Family History
Family History: Not pertinent
Allergies / Home Medications
Allergies reflects when Allergies were last updated in [employer].
Home Medications with original date entered in [employer]
Allergy/Medication List:
Allergies
Allergy/AdvReac Type Severity Reaction Status Date / Time
bee venom protein (honey bee) Allergy Severe Anaphylaxis Verified 02/11/24 12:13
varenicline [From Chantix] Allergy Severe Rash Verified 02/11/24 12:13
Home Medications
Lopressor 1 tab PO BID 09/03/23
emtricitabine 200 mg-rilpivirine 25 mg-tenofovir disprox 300 mg tablet (Complera) 1 tab PO HS 09/03/23
tamsulosin 0.4 mg capsule 0.4 mg PO HS 09/03/23
albuterol sulfate 90 mcg/actuation aerosol inhaler 2 puff inhalation R Q6HPRN PRN sob 02/11/24
Review of Systems
-
History Source: Patient
A 12 point ROS was completed and negative except as noted: Yes
Constitutional: Denies Fever or Chills
EENT: Denies Sore Throat or Runny Nose
Respiratory: Denies Cough or Trouble Breathing
Cardiac: Denies Chest Pain, Diaphoresis, Palpitations or Syncope
Abdomen/GI: Denies Abdominal Pain, Nausea, Vomiting, Diarrhea, Constipated, Bloody Stools or Black Stools
: Denies Dysuria, Frequency, Flank Pain, Incontinence, Difficulty Voiding or Urgency
Musculoskeletal: Reports Other (Blister to right third toe with slight surrounding erythema, bilateral athletes feet with bilateral fungal toenails); Denies Joint Pain or Edema
Skin: Denies Itching or Rash
Neurological: Denies Dizzy, Headache or Weakness
Endocrine: Reports No Symptoms
Hematologic/Lymphatic: Reports No Symptoms
Psych: Reports Calm
Physical Exam
Vital Signs
Vital Signs
Temp Pulse Resp BP Pulse Ox
98.3 F 101 16 138/84 100
02/11/24 12:13 02/11/24 14:00 02/11/24 14:00 02/11/24 14:00 02/11/24 13:05
Physical Exam
General: No Pain, Fever or Chills
HEENT: NormoCephalic, Anicteric, Moist mucous membranes, PERRLA, Rembrandt Conjunctivae and No Ptosis
Respiratory: Clear; No Wheezes, Rales or Rhonchi
Cardiac: S1/S2 and Regular Rhythm; No Murmur, Rub, Gallop or Peripheral Edema
Breast: Deferred by me
GI: Soft, Non Tender, Non Distended, Normal Bowel Sounds and No Hepatosplenomegaly
Rectal: Deferred by Provider
Genito-urinary: Deferred by me
Musculoskeletal: No Clubbing, No Cyanosis, No Edema and Other (Blister to right third toe with slight surrounding erythema, bilateral athletes feet with bilateral fungal toenails)
Skin: Warm, Dry and Other (Blister to right third toe with slight surrounding erythema, bilateral athletes feet with bilateral fungal toenails); No Rash or Jaundice
Neuro: AO x 3, No Motor Deficits, Nonfocal/grossly intact, Cranial Nerves Intact and No Sensory Deficits; No Slurred Speech, Facial Droop or Tremors
Psych: Calm
Laboratory Results
-
02/11/24 12:30
02/11/24 12:30
Laboratory Results
Total Bilirubin 0.3 mg/dl (0.2-1.3) 02/11/24 12:30
AST 31 U/L (17-59) 02/11/24 12:30
ALT 27 U/L (0-50) 02/11/24 12:30
Alkaline Phosphatase 92 U/L (38-126) 02/11/24 12:30
Impression/Plan
-
Impression/plan:
Admit to MedSurg
#Acute on chronic thrombocytopenia/Hx ITP mid 30s
PLT 19 baseline 7-39 August to October of 2023
History of dexamethasone and platelet transfusion in past
was advised in past for recommendation for splenectomy
-Follow CBC
- IVIG over steroids per [facility] recommended per Dr Doshi
consult I/d, per Dr luis,blood cultures x2, fungal blood culture, Iv Vanco, Iv zosyn
#Right lower foot 3rd toe blister with cellulitis immunocompromise male
#Hx cellulitis right lower extremity, Hx fungal toenails/Athletes feet
-WBC 6.3, afebrile, normotensive
-IV Ancef in Er, will d/c home on Keflex
-PT/OT consult
-Recommend follow-up outpatient podiatry
Right lower extremity venous Doppler: No evidence of DVT. Enlarged 3 cm right inguinal lymph node secondary to right lower extremity cellulitis
#HIV/AIDS recent CD4 count October
-Is on HAART therapy patient reports he usually takes it but occasionally misses- made pt aware he cannot miss his meds
-Follows with Dr. Ramirez in [place] every 6 months
- pt takes Complera hs
#HTN -benign
BP 138/84
pt takes lopressor unknown dose
#Asthma hx [id number] acute exacerbation
-Patient reports he rarely uses any inhalers
#GERD hx
-No current medication
#Former smoker 34-year 1 pack a day quit 6 months ago
Other PMH:
Frequent headaches
ADHD
Penile Fracture with repair
COVID infection May 2021
DVT prophylaxis
hold given plt 19
Full code
[2024-02-11] MEDS: ANCEF 10 IV (16:34)
--- NOTE | 2024-02-11 18:26 | W.PN.UPDATE ---
Update Note
Progress Note Update
I saw and examined the patient.
The ADJUNCT POLITICAL SCIENCE INSTRUCTOR's note was reviewed and I agree with the note.
Patient is a 48-year-old male with history of HIV on antiretroviral therapy, essential hypertension, history of asthma came to ER for having right foot third toe redness and surrounding skin erythema. Patient noticed a small blister on tip of the
toe and denies of having any trauma to the foot. Started spreading redness around the area. No significant pain patient is afebrile. Patient has been on and off compliant with antiretroviral therapy and has not followed up with infectious disease
doctor in last 3 months. Patient unaware of last CD4 count according to chart review last count was 73 in nov 08. Patient not on any prophylactic antifungal/antibacterial therapy. Patient also noted to having thrombocytopenia with diagnosis of
ITP, denies of having any bleeding gums/epistaxis/melena/hematemesis/hematochezia
HEENT: No pallor, cyanosis, or jaundice. Throat clear.
NECK: Supple. No JVD.
RESPIRATORY: Lungs clear to auscultation.
CVS: S1, S2 normal. RRR. No murmur, rub or gallop.
ABDOMEN: Soft, non-tender. No distension. BS+/normal.
EXTREMITIES: Right foot 3rd toe blister , surrounding erythema
[employer]ER: AOx3. No focal deficits.
Right foot toe infection and cellulitis
-Good palpable pulse, at risk of vasculopathy with HIV
-afebrile, non toxic appearing
-ID consulted and patient started on vanc/zosyn
-Blood culture and fungal culture ordered per ID recommendation
ITP
-f/u with hematology in [place]
-Plt count down to 19k, no bleeding diathesis
-discussed with hematology and due to already suppressed CD4 count, plan to be transfused IVIG
-f/u Plt count
-Hematology evaluation
HIV
-on complera, compliance unknown
-Last CD4 in Nov 08 was 75, recheck if ID recommended
Microcytosis
-Hbg 14.5 but MCV of 76.5
-check iron profile in AM
-thrombocytopenic and can have occult GI bleeding.
Full code
[2024-02-11 20:05] VITALS: BP 152/101
[2024-02-11 20:06] VITALS: BMI 21.0
[2024-02-11] MEDS: ZOSYN 50 IV (20:59)
[2024-02-11] MEDS: LOPRESSOR 12.5 MG PO (21:03)
[2024-02-11] MEDS: GAMMAGARD 300 IV (22:25)
[2024-02-11] MEDS: FLOMAX 0.4 MG PO (22:36)
[2024-02-11 23:07] VITALS: BP 147/103
[2024-02-11 23:40] VITALS: BP 148/108
[2024-02-12] VITALS (7 sets, daily range): BP systolic 126–157; BP diastolic 76–115; PULSE 99; O2SAT 97
[2024-02-12] MEDS: GAMMAGARD 50 IV (01:44)
[2024-02-12] MEDS: ZOSYN 50 IV ×3 (02:18→14:03)
[2024-02-12] MEDS: ZOSYN IV (02:25)
[2024-02-12] MEDS: VANCOCIN 540 MG IV (02:53)
[2024-02-12 07:17] LABS: Blood Urea Nitrogen 12 mg/dl (9-20); Calcium 8.6 mg/dl (8.4-10.2); Carbon Dioxide 28 mmol/L (22-30); Chloride 104 mmol/L (98-107); Estimated Creatinine Clearance 89 ml/min; Glucose 110 mg/dl (70-99); Iron 61 ug/dl (49-181); Potassium 4.5 mmol/L (3.5-5.1); Sodium 134 mmol/L (135-145); eGFR > 60.00
[2024-02-12 07:26] LABS: Percent Saturation 18 % (20-50); Total Iron Binding Capacity 322 ug/dl (261-462)
[2024-02-12 07:50] LABS: % Basophils 0.9 % (0-2); % Eosinophils 4.6 % (0-6); % Immature Granulocytes 0.9 % (0-0.5); % Lymphocytes 17.1 % (20.5-51.1); % Monocytes 8.3 % (1.7-9.3); % Neutrophils 68.2 % (42.2-75.2); Absolute Eosinophils 0.2 10^3/uL (0-0.7); Absolute Lymphocytes 0.6 10^3/uL (1.2-3.4); Absolute Monocytes 0.3 10^3/uL (0.1-0.6); Absolute Neutrophils 2.4 10^3/uL (1.4-6.5); Hematocrit 43.5 % (39.0-52.0); Hemoglobin 14.5 g/dL (13.0-18.0); Mean Corp Hgb Conc. 33.3 g/dL (33.0-37.0); Mean Corpuscular Hgb 25.9 pg (27.0-31.0); Mean Corpuscular Volume 77.8 fL (80.0-94.0); Nucleated Red Blood Cells % 0 % (-); Platelet Count 25 10^3/uL (130-400); Red Blood Cell Count 5.59 10^6/uL (4.70-6.10); Red Cell Dist. Width 15.7 % (11.5-14.5); White Blood Cell Count 3.5 10^3/uL (4.8-10.8)
[2024-02-12] MEDS: LOPRESSOR 12.5 MG PO (07:51)
[2024-02-12 07:53] LABS: Ferritin 21.5 ng/ml (17.9-464.0)
--- NOTE | 2024-02-12 08:40 | PHA.VAN.IN ---
Assessment
- Assessment
Renal Function: Appears similar to baseline
Concomitant Antimicrobials: piperacillin/tazo
AUC Dosing Plan
- Dosing Variables
Dosing Weight (kg): 68
Dosing CrCl (ml/min): 89
Vd coefficient (L/kg): 0.7
- Empiric Dosing
Initial / Loading Dose: 2000 mg - given ~0300 02/11
Maintenance Regimen: 1000 mg q12h - start 1800 02/11
Estimated AUC (mcg*h/mL): 558
Estimated Peak (mcg*h/mL): 34.5
Estimated Trough (mcg/ml): 14.6
Estimated Half Life (H): 8.9
- Monitoring
No levels ordered at this time: consider levels as pt nears steady state
Pharmacokinetics Vancomycin I
- -
Patient Age: 48
Patient Sex: Male
Vancomycin Day #: 1
Indication: Skin And Soft Tissue
Requesting Provider: Leonard
Height / Weight:
Height 5 ft 11 in
Actual Weight 68.181 kg
Pertinent Past Medical History: hx leg cellulitis; HIV; ITP
- Vital Signs / Lab Results
Temp Pulse Resp BP Pulse Ox
98.1 F 89 18 126/88 100
02/12/24 07:00 02/12/24 07:00 02/12/24 07:00 02/12/24 07:00 02/12/24 07:00
Lab Results - Hematology
02/11/24 02/12/24
12:30 06:35
WBC 6.3 3.5 L
Lab Results - Chemistry
02/11/24 02/12/24
12:30 06:35
BUN 10 12
Creatinine 0.8 1.0
Estimated Creat Clear 113 89
Albumin 4.1
--- NOTE | 2024-02-12 10:42 | CON.ONC ---
Impression
Impression
Presumptive diagnosis ITP steroid responsive
HIV
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
Iron deficiency saturation 18%
Medical noncompliance
Cellulitis
Leukopenia
Plan
Plan
Discussed the need to maintain platelet counts greater than 30K to reduce risk of spontaneous bleeding
Offered follow-up in the office to consider thrombopoetic therapy such as Promacta or Nplate
Would evaluate as an outpatient with direct antiplatelet antibody and antiphospholipid antibodies
Patient is stable for discharge with current platelet count as he has received a dose of IgG
Hesitant to use steroids in the face of acute infection
No clinically active bleeding but consider GI follow-up for iron deficiency
Previously instructed to follow-up has been noncompliant
Patient History
History of Present Illness
48-year-old male with a past medical history HIV/AIDS recent CD4 count 74, ITP since mid 30s, ADHD, BPH, HTN, frequent headaches, COVID infection May 2021, asthma, active smoker presented complaining of a right foot third toe blister with
redness and swelling. He reports the area has become worse prior to presentation over a very short interval. He denies any trauma or injury to this leg. He does state he has history of past cellulitis in this leg. He denies fever, chills, chest
pain, palpitations, shortness breath, cough, abdominal pain, nausea, vomiting, diarrhea, urinary symptoms. He was previously diagnosed with ITP associated thrombocytopenia and does not follow routinely with hematology. He has had history of
platelets of 7 in October and responded to dexamethasone. He has been generally noncompliant.
Patient Medication
�Medication �Instructions �Recorded �Confirmed �Last Taken �Type
Lopressor 1 tab PO BID Blood Pressure 09/03/23 10/30/23 02/10/24 History
emtricitabine 200 mg-rilpivirine 1 tab PO HS Infection 09/03/23 10/30/23 02/10/24 History
25 mg-tenofovir disprox 300 mg
tablet (Complera)
tamsulosin 0.4 mg capsule 0.4 mg PO HS Urinary Issue 09/03/23 10/30/23 02/10/24 History
albuterol sulfate 90 mcg/actuation 2 puff inhalation R Q6HPRN PRN sob 02/11/24 02/11/24 Unknown History
aerosol inhaler
Active Medications
Generic Name Dose Route Start Last Admin
Trade Name Freq PRN Reason Stop Dose Admin
Acetaminophen 650 mg 02/11/24 22:00
Acetaminophen 325 Mg Tablet PO 03/10/24 21:59
Q4HPRN PRN
mild pain/GARCIA/temp> 100.4F
Piperacillin Sod/Tazobactam Sod 3.375 gram in 50 mls @ 100 mls/hr 02/12/24 02:00 02/12/24 07:51
Zosyn IV 50 mls
Q6H ROSA Administration
Vancomycin HCl 1 gram in 200 mls @ 200 mls/hr 02/12/24 18:00
Vancocin IV
Q12H ROSA
Protocol
Metoprolol Tartrate 12.5 mg 02/11/24 20:00 02/12/24 07:51
Metoprolol 12.5 Mg Regular Release Dose (1/2 Of 25 Mg Tablet) PO 03/10/24 19:59 12.5 mg
BID ROSA Administration
Non-Formulary Medication 1 tablet 02/11/24 22:00
Ewrclkmxz-Xfqltcbtupb-Hprfr Df [Complera] PO 03/10/24 21:59
HS ROSA
Sodium Chloride 0 flush 02/11/24 20:00
Sodium Chloride 0.9% (Flush) Syringe IV 03/10/24 19:59
PER PROTOCOL ROSA
Tamsulosin HCl 0.4 mg 02/11/24 22:00 02/11/24 22:36
Tamsulosin 0.4 Mg Capsule PO 03/10/24 21:59 0.4 mg
HS ROSA Administration
Review of Systems
-
12 point review of systems fails to elicit additional complaints other than those reviewed in the HPI
Physical Exam
-
General: No Pain, Fever or Chills
HEENT: NormoCephalic, Anicteric, Moist mucous membranes
Respiratory: Clear; No Wheezes, Rales or Rhonchi
Cardiac: S1/S2 and Regular Rhythm; No Murmur
GI: Soft, Non Tender, Non Distended, Normal Bowel Sounds and No Hepatosplenomegaly
Musculoskeletal: No Clubbing, No Cyanosis, No Edema and Other (Blister to right third toe with slight surrounding erythema, bilateral athletes feet with bilateral fungal toenails)
Skin: Warm and Dry
Extremity surrounding erythema improving, bilateral tenia
Neuro: AO x 3, No Motor Deficits, Nonfocal/grossly intact, Cranial Nerves Intact and No Sensory Deficits; No Slurred Speech, Facial Droop or Tremors
Psych: Calm
Labs
Lab Results
WBC 3.5 10^3/uL (4.8-10.8) L 02/12/24 06:35
RBC 5.59 10^6/uL (4.70-6.10) 02/12/24 06:35
Hgb 14.5 g/dL (13.0-18.0) 02/12/24 06:35
Hct 43.5 % (39.0-52.0) 02/12/24 06:35
MCV 77.8 fL (80.0-94.0) L 02/12/24 06:35
MCH 25.9 pg (27.0-31.0) L 02/12/24 06:35
MCHC 33.3 g/dL (33.0-37.0) 02/12/24 06:35
RDW 15.7 % (11.5-14.5) H 02/12/24 06:35
Plt Count 25 10^3/uL (130-400) L* D 02/12/24 06:35
MPV Not Reportable 02/12/24 06:35
Abs Immat Gran (auto) 0.0 10^3/uL (0-0.05) 02/12/24 06:35
Absolute Neuts (auto) 2.4 10^3/uL (1.4-6.5) 02/12/24 06:35
Absolute Lymphs (auto) 0.6 10^3/uL (1.2-3.4) L 02/12/24 06:35
Absolute Monos (auto) 0.3 10^3/uL (0.1-0.6) 02/12/24 06:35
Absolute Eos (auto) 0.2 10^3/uL (0-0.7) 02/12/24 06:35
Absolute Basos (auto) 0.0 10^3/uL (0-0.2) 02/12/24 06:35
Immature Gran % 0.9 % (0-0.5) H 02/12/24 06:35
Neutrophils % 68.2 % (42.2-75.2) 02/12/24 06:35
Lymphocytes % 17.1 % (20.5-51.1) L 02/12/24 06:35
Monocytes % 8.3 % (1.7-9.3) 02/12/24 06:35
Eosinophils % 4.6 % (0-6) 02/12/24 06:35
Basophils % 0.9 % (0-2) 02/12/24 06:35
Creatinine 1.0 mg/dL (0.7-1.3) 02/12/24 06:35
Vital Signs
Vital Signs
Temp Pulse Resp BP Pulse Ox
98.1 F 89 18 126/88 100
02/12/24 07:00 02/12/24 07:00 02/12/24 07:00 02/12/24 07:00 02/12/24 07:00
--- NOTE | 2024-02-12 12:05 | W.PN.HOSP.TC ---
Today's Communication/Plan
-
continue abx
await ID input
Assessment / Plan
Assessment / Plan
Right foot toe infection and cellulitis
-Good palpable pulse, at risk of vasculopathy with HIV
-afebrile, non toxic appearing
-ID consulted and patient started on vanc/zosyn
-Blood culture and fungal culture ordered per ID recommendation
ITP
-f/u with hematology in [place]
-Plt count down to 19k, no bleeding diathesis
-discussed with hematology and due to already suppressed CD4 count, plan to be transfused IVIG
-platelet count increased to 25k today
-Hematology evaluated and help appreciated.
HIV
-on Complera, compliance unknown
-Last CD4 in Nov 08 was 75, recheck if ID recommended
Microcytosis
Iron def anemia
-Hbg 14.5 but MCV of 76.5
-Low ferritin of 21.
-thrombocytopenic and can have occult GI bleeding. outpt GI eval will be required.
Full code
Anticipated Discharge: Within 24 hours
Subjective/Interval History
-
Date of Service: February 12, 2024
denies of having any issues
Objective Data
-
Labs:
Laboratory Results
02/12/24
06:35
WBC 3.5 L
Hgb 14.5
Hct 43.5
Plt Count 25 L* D
Sodium 134 L
Potassium 4.5
Chloride 104
Carbon Dioxide 28
BUN 12
Creatinine 1.0
Glucose 110 H
Calcium 8.6
Vital Signs:
Vital Signs
Temp Pulse Resp BP Pulse Ox
98.1 F 89 18 126/88 100
02/12/24 07:00 02/12/24 07:00 02/12/24 07:00 02/12/24 07:00 02/12/24 07:00
Review of Systems
-
Respiratory: Reports No Symptoms
Cardiac: Reports No Symptoms
Abdomen/GI: Reports No Symptoms
Physical Exam
-
General: No Apparent Distress and Comfortable
HEENT: Negative Oxygen
Respiratory: Clear to Auscultation
Cardiac: Regular Rhythm and S1/S2; Negative Murmur or Rub
GI: Soft, Nontender and Nondistended
Musculoskeletal: No Edema
Neuro: Awake, Alert, Oriented, No Motor Deficits and Nonfocal/Grossly Intact
Psych: Calm
--- NOTE | 2024-02-12 14:09 | CON.ID ---
Consultation
-
Date/Time Consultation Requested: 02/11/24 16:41
Date/Time Consultation Performed: 02/12/24 14:11
Requesting Provider: Leonard PUGA
Performing Provider: Dr Marcos
Reason for Consultation: Diabetic foot, AIDS
Chief Complaint / Past History
Chief Complaint
Right foot blister with redness and erythema
History of Present Illness
Mr Saxena is a 48 year old male with history of HIV - never told he had AIDS - doesnt recall his last CD4 count outpatient but confident his VL was suppressed, while sick here his last cd4 74 which is likely falsely low, has been under the care of
Dr Sumit Ramirez and last saw him about (formerly of the [facility]) former smoker, ITP not on chronic steroids - last on them october 2023 for about 5 days, no splenectomy who presented here for a blister and the right third toe with redness and
swelling for several days where his toes rub together. No trauma. No previous diagnosis of DM2, a1c on file or oral hypoglycemics but running hyperglycemic here. He denies fever, chills, chest pain, palpitations, shortness breath, cough,
abdominal pain, nausea, vomiting, diarrhea, urinary symptoms. He reports intermittent wounds on the foot previously - typically around the times when he has low plt from ITP and easy bruising. From drug user (cocaine) denies current use.
Has been noncompliant with oncology recs in the past.
Since arrival here tmax 100.1, bp stable, wbc initially 6.3 now 3.5, hgb 14.5, plt 25 (known ITP), l shift noted on arrival, resolved today, cr 0.8, no a1c on file, glucoses running 120-150 here, t bili 0.3, ast 31, alt 27, alk phos 92, no prior UDS
on file, 02/10 venous US: no DVT but reactive R inguinal lymph node, no Xray of the foot done yet, single blood culture and fungal blood culture done. Had IVIG per oncology for ITP
Past History
Additional Past Medical History:
Asthma
Former smoker 34-year 1 pack a day quit 6 months ago
GERD
HTN
ITP Dx age 30s
Frequent headaches
ADHD
Penile Fracture
COVID infection May 2021
Additional Past Surgical History:
Myringotomy tubes
Penile fracture repair
Lymph node removal
Allergy History:
bee venom protein (honey bee) Allergy (Severe, Verified 02/11/24 12:13)
Anaphylaxis
varenicline [From Chantix] Allergy (Severe, Verified 02/11/24 12:13)
Rash
Medications Reviewed: Yes
Social History
Tobacco: Former Smoker (34 pack year history, quit 6 months ago)
Alcohol: None
Drug: Former User (cocaine)
Living: Other (has a myra and frequently around ticks)
Employment: Employed
Family History
Family History: Not Pertinent
Review of Systems
Review of Systems
General: Negative Fever or Chills
All systems: All other systems were reviewed and were negative
Vital Signs
Temp Pulse Resp BP Pulse Ox
98.1 F 89 18 126/88 100
02/12/24 07:00 02/12/24 07:00 02/12/24 07:00 02/12/24 07:00 02/12/24 07:00
Physical Exam
Physical Exam
Constitutional: No Acute Distress
Cardiovascular: Regular Rate and S1/S2; Negative Murmur or Rub
Pulmonary: Clear and Symmetric; Negative Wheezes, Rales or Rhonchi
Gastrointestinal: Soft, Non Tender, Non Distended and Normal Bowel Sounds
Skin: Warm, Dry and Rash (blister, right 3rd toe); Negative Jaundice
Lab / Diagnostic Study Results
02/12/24 06:35
02/12/24 06:35
Abs Immat Gran (auto) 0.0 10^3/uL (0-0.05) 02/12/24 06:35
Absolute Neuts (auto) 2.4 10^3/uL (1.4-6.5) 02/12/24 06:35
Absolute Lymphs (auto) 0.6 10^3/uL (1.2-3.4) L 02/12/24 06:35
Absolute Monos (auto) 0.3 10^3/uL (0.1-0.6) 02/12/24 06:35
Absolute Basos (auto) 0.0 10^3/uL (0-0.2) 02/12/24 06:35
Immature Gran % 0.9 % (0-0.5) H 02/12/24 06:35
Neutrophils % 68.2 % (42.2-75.2) 02/12/24 06:35
Lymphocytes % 17.1 % (20.5-51.1) L 02/12/24 06:35
Monocytes % 8.3 % (1.7-9.3) 02/12/24 06:35
Eosinophils % 4.6 % (0-6) 02/12/24 06:35
Basophils % 0.9 % (0-2) 02/12/24 06:35
Microbiology Results
Micro:
02/11/24 17:53 Blood Culture - Pending
Blood/Venous
Assessment / Plan
Suspected Diabetic Foot Infection vs Foot Infection
HIV - doubt AIDS - has been under care
Onychomycosis
History of noncompliance
- send second set of blood cultures
- fungal blood culture in progress as well - I recommended when it seemed patient had AIDS
- Xray of the foot can be done outpatient patient reports he need to be a work in 1 hour
- check a1c
- UDS - results would impact my decisions regarding antibiotics
- last cd4 74 here last done october while he was sick which can be falsely depressed - would generally avoid sending CD4 count inpatient while ill unless a new diagnosis of HIV
- agree with avoidance of steroids
- start augmentin 875/125 mg PO NAT x 14 days at least
- continue complera - reports difficulty traveling to [place] to see his primary HIV provider Dr Ramirez as he doesnt drive - would prefer to establish care in our clinic if we take his insurance - office can check tuesday- follow up a bit over a week
- recommend close follow up with podiatry - suggested Dr Tyler group, Dr Mayfield or Dr Nunez
Care Review
Plan reviewed with: Physician (Dr Heller- dispo)
[2024-02-12 15:01] LABS: Amphetamines Positive (Negative); Barbiturates Negative (Negative); Benzodiazepines Negative (Negative); Buprenorphine Negative (Negative); Cocaine Negative (Negative); Methamphetamines Positive (Negative)
[2024-02-12 15:02] LABS: Marijuana Negative (Negative); Methadone Negative (Negative); Opiates Negative (Negative); Phencyclidine Negative (Negative); Tricyclic Antidepressants Negative (Negative)
[2024-02-12 15:27] LABS: Fentanyl, Urine Negative (Negative)
--- NOTE | 2024-02-12 15:37 | CM ---
Reviewed chart, met with patient to obtain information for assessment. Patient stated that he lives by himself in a one floor apartment up on the 4th floor with no elevator access. He denied difficulty with steps.
Patiient is independent with his ADLs, personal care, dressing, bathing and is able to do supervisor order takers, cook, clean and do laundry. 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
Patient does not drive a car but has a scooter that he drives to get to appointments and his shopping.
He denied any DME. He has never had VN services.
Patient has never been to a SNF.
Plan: Case management will continue to follow and assist with discharge planning. Patient is anticipating that he will be able to return home today and does not have any CM needs.
[2024-02-13 08:51] LABS: Glycohemoglobin (HgbA1c) 5.9 % (4.0-5.6)
== END 2024-02-12 16:04 | disposition home or self-care (01) | DRG 638 ==
LOC: 3 WEST ACU 16:54
PROVIDERS: Clinical Nurse Specialist Family Health; ADMITTING PHYSICIAN Hospitalist; CONSULT PHYSICIAN Internal Medicine Hematology & Oncology; CONSULT PHYSICIAN Student in an Organized Health Care Education/Training Program; EMERGENCY PHYSICIAN Emergency Medicine; FAMILY PHYSICIAN Family Medicine
DX: E11.621 Type 2 diabetes mellitus with foot ulcer (principal); B20 Human immunodeficiency virus [HIV] disease; L03.115 Cellulitis of right lower limb; D69.3 Immune thrombocytopenic purpura; K92.2 Gastrointestinal hemorrhage, unspecified; L97.519 Non-pressure chronic ulcer of other part of right foot with unspecified severity
CPT/HCPCS: 80048; 80053; 80306; 80307; 82728; 83036; 83540; 83550; 85025; 87040; 87103; 93971; 96374; 97161; 97165; 99284; J1569